=== PATIENT | male | born 1990 | race Caucasian/White ===

== ENCOUNTER 2018-03-05 18:51 | Emergency (ER) | payer OTHER ==
[~2018-03-05] VITALS: Ht 170.2 cm; Wt 76.8 kg
[2018-03-05] MEDS ORDERED: ASPIRIN 81 MG TABLET CHEW PO ONE (19:30)
[2018-03-05] MEDS ORDERED: SODIUM CHLORIDE FLUSH 10ML SYR IVF ONE (19:30)
[2018-03-05 19:40] LABS: BASOPHILS # (AUTO) 0.04 x10^3/uL (0-0.1); BASOPHILS % (AUTO) 0 % (0-1); EOSINOPHILS # (AUTO) 0.28 x10^3/uL (0-0.4); EOSINOPHILS % (AUTO) 3 % (1-7); LYMPHOCYTES # (AUTO) 2.16 x10^3/uL (1-3.4); LYMPHOCYTES % (AUTO) 23 % (22-44); MD NO; MEAN CORPUSCULAR HEMOGLOBIN 30.8 pg (27.5-34.5); MEAN CORPUSCULAR HGB CONC 34.1 g/dL (33.2-36.2); MEAN CORPUSCULAR VOLUME 90.2 fL (81-97); MEAN PLATELET VOLUME 9.1 fL (7.4-10.4); MONOCYTES # (AUTO) 0.58 x10^3/uL (0.2-0.8); MONOCYTES % (AUTO) 6 % (2-9); NEUTROPHILS # (AUTO) 6.19 x10^3/uL (1.8-6.8); NEUTROPHILS % (AUTO) 67 % (42-75); PLATELET COUNT 239 x10^3/uL (130-400); RED BLOOD COUNT 5.37 x10^6/uL (4.38-5.82); RED CELL DISTRIBUTION WIDTH 12.9 % (9.4-14.8)
[2018-03-05 19:53] LABS: ALBUMIN 4.5 g/dL (3.4-5.0); ANION GAP 3 mmol/L (5-15); CALCIUM 9.2 mg/dL (8.5-10.1); CHLORIDE 104 mmol/L (98-107); CREATININE 1.11 mg/dL (0.7-1.3)
[2018-03-05 19:57] LABS: TROPONIN I < 0.015 ng/mL (0.000-0.045)
--- NOTE | 2018-03-05 20:23 | NUR ---
SOB SINCE Jan. ALSO C/O PALPITATIONS; WORSE WITH EXERTION. DENIES RECENT TRAVEL. RIGHT ARM "GOES NUMB" OFF/ON. MOTHER HAD A QUAD BYPASS AT AGE 39. [address] [employer] PT IS RESTING CALL LIGHT WITHIN REACH
--- NOTE | 2018-03-05 20:26 | NUR ---
EKG IN PROGRESS. PT ON CARIDAC AND VS MONITORING, VSS. PT RESTING COMFORTABLY. PT TO HAVE ASPIRIN.
[2018-03-05] MEDS ORDERED: ASPIRIN 81 MG TABLET EC ONE (20:31)
--- NOTE | 2018-03-05 20:37 | NUR ---
PROVIDER TO BEDSIDE FOR PT EVAL COMPLETE. PT RECIEVED ASPIRIN PER ORDERS, SEE EMAR. PT CONTINUES ON CARDIAC AND VS MONITORING. PT HAS FAMILY AT BEDSIDE. PT STATES HAVING CHEST "DISCOMFORT," SOB, NUMB R ARM, AND NAUSEA X12 DAYS. PT A/OX4, BREATHING E/U, VSS. REPEAT EKG COMPLETED, REVIEWED. PT CONVERSING WELL, APPEARS COMFORTABLE, NO S/SX OF DISTRESS. PT REPORTS HIS MOTHER WAS DX WITH HEART DISEASE AROUND HER 30'S AND SO IT CAUSED PT TO HAVE ANXIETY THINKING THE SAME WAS HAPPENING TO HIM. PT CALM AND COOPERATIVE AT THIS TIME. CALL LIGHT IN REACH. WILL CONTINUE TO MONITOR.
[2018-03-05] MEDS ORDERED: CYCLOBENZAPRINE 10 MG TABLET ONE (20:42)
--- NOTE | 2018-03-05 20:44 | NUR ---
PT RECIEVED FLEXERIL PER ORDERS, SEE EMAR. PT RESTING IN BED, CONTINUES ON MONITOR, NO CHANGES TO PT. PT CONVERSING WITH FAMILY AT BEDSIDE. PT CALM. CALL LIGHT IN REACH.
[2018-03-05] MEDS ORDERED: CYCLOBENZAPRINE 10 MG TABLET PO SCH (21:00)
[2018-03-05 21:30] VITALS: BP 119/83
--- NOTE | 2018-03-05 21:31 | NUR ---
TASK RN: DC EDUCATION PROVIDED TO PT AND SO WHO DEMONSTRATE UNDERSTANDING. PT AMBULATED STEADILY TO DC WITH RN AND SO. SO TO TRANSPORT PT HOME.
== END 2018-03-05 21:32 | disposition home or self-care (01) ==
LOC: ED 21:00
DX: R06.00 Dyspnea, unspecified (principal); M54.6 Pain in thoracic spine; R00.2 Palpitations
CPT/HCPCS: 36415; 71046; 80048; 82040; 83880; 84484; 85025; 93005; 99284